=== PATIENT | female | born 1965 | race Caucasian/White ===

== ENCOUNTER → 2022-06-11 10:40 | Outpatient (BNVA) | payer MEDICARE, SELFPAY | PROVIDERS: Family Provider Family Medicine; PCP Family Medicine; Visit Provider Obstetrics & Gynecology | DX: R87.619 Unspecified abnormal cytological findings in specimens from cervix uteri (principal) | CPT/HCPCS: 88305 ==

== ENCOUNTER 2022-09-02 15:40 | Observation (INO) | payer MEDICARE, SELFPAY ==
[2022-08-27 11:11] VITALS: BMI 38.5
[2022-09-02] VITALS (17 sets, daily range): BP systolic 109–160; BP diastolic 52–84; PULSE 55–84; RESP 16–24; TEMP 36.1–37; O2SAT 92–99; BMI 38.5
[2022-09-02] MEDS: sodium chloride 0.9% 1,000 ML 30 ML IV (10:04)
[2022-09-02 10:26] LABS: Basophils # 0.1 10^3/uL (0.0-0.1); Basophils % 0.8 %; Eosinophils # 0.1 10^3/uL (0.0-0.8); Eosinophils % 1.1 %; Hematocrit 45.8 % (37.0-47.0); Hemoglobin 15.5 g/dL (11.5-15.3); Lymphocytes # 3.8 10^3/uL (0.8-4.8); Lymphocytes % 30.9 %; Mean Corpuscular HGB Conc 33.8 g/dL (30.0-36.0); Mean Corpuscular Hemoglobin 31.7 pg (28.0-34.0); Mean Corpuscular Volume 93.7 fl (81-99); Monocytes # 0.8 10^3/uL (0.2-0.9); Monocytes % 6.4 %; Neutrophils # 7.48 10^3/uL (1.8-7.7); Neutrophils % 60.6 %; Nucleated Red Blood Cells % 0 %; Platelet Count 412 10^3/cmm (130-400); Red Blood Count 4.89 10^6/uL (4.1-5.3); Red Cell Distribution Width 13.1 % (12.1-15.1); White Blood Count 12.3 10^3/uL (4.0-10.0)
[2022-09-02 10:48] LABS: Anion Gap 14.3 (5-19); Blood Urea Nitrogen 12 mg/dL (6-20); Calcium 9.1 mg/dL (8.5-10.5); Carbon Dioxide 23 mmol/L (22-29); Chloride 107 mmol/L (98-107); Glomerular Filtration Rate 126.7 mL/min (90-130); Glucose 97 mg/dL (65-115); Osmolality Calculated 290 mOsm/kg (285-295); Potassium 4.3 mmol/L (3.5-5.1); Sodium 140 mmol/L (136-145)
--- NOTE | 2022-09-02 12:06 | W.PM.OPSUD ---
Surgery/Procedure H&P Update DATE OF PROCEDURE: September 02, 2022 DATE H&P PERFORMED: 08/27/22 H&P UPDATE INFORMATION: I have reviewed H&P completed within last 30 days, I have examined patient prior to procedure and No changes to prior documentation PREOP DIAGNOSIS: HGSIL PLANNED PROCEDURE: Operation Date: 09/02/22 11:15 Proposed Procedures p Laparoscopic assisted vaginal hysterectomy, bilateral salpingectomy 57204, Anterior and posterior repair 53088, Possible slong 29779,N81.4,R87.613,D06.9(Not Applicable) - Zhanna Fernandez MD s Laparoscopic Salpingectomy(Bilateral) - Zhanna Fernandez MD s Anterior Repair(Not Applicable) - Zhanna Fernandez MD s Posterior Repair(Not Applicable) - Zhanna Fernandez MD s Sling(Not Applicable) - Zhanna Fernandez MD
[2022-09-02] MEDS: ceFAZolin 2,000 MG in sodium chloride 0.9% (plus) 50 ML 100 MG IV ×2 (12:12→19:56)
--- NOTE | 2022-09-02 13:50 | ANES.PREANE2 ---
Pre-Anesthetic Assessment Height/Weight: Height 1.57 m Weight 95.708 kg Temp Pulse Resp BP Pulse Ox O2 Del Method 97.4 F L 76 16 122/61 96 09/02/22 09:50 09/02/22 09:50 09/02/22 09:50 09/02/22 09:50 09/02/22 09:50 09/02/22 09:50 Preop Diagnosis: HGSIL Operation Date: 09/02/22 11:15 Proposed Procedures p Laparoscopic assisted vaginal hysterectomy, bilateral salpingectomy 29458, Anterior and posterior repair 70741, Possible slong 11591,N81.4,R87.613,D06.9(Not Applicable) - Zhanna Fernandez MD s Laparoscopic Salpingectomy(Bilateral) - Zhanna Fernandez MD s Anterior Repair(Not Applicable) - Zhanna Fernandez MD s Posterior Repair(Not Applicable) - Zhanna Fernandez MD s Sling(Not Applicable) - Zhanna Fernandez MD Familial anesthetic complications: none Was Beta Lex taken within 24 hours: N/A Was Clonidine taken within 24 hours: N/A Last intake: Intake Last Liquid Date 09/01/22 Last Liquid Time 22:30 Last Solid Date 09/01/22 Last Solid Time 22:30 Social No alcohol and No tobacco Exam alert, oriented x 3, clear to auscultation bilaterally and regular rate & rhythm Airway Submandibular: within normal limits Cervical ROM: within normal limits Mallampati: Class II Dentition: false Metabolic Morbid Obesity Neuropsych Anxiety Anesthetic Plan ASA status: 2 Anesthesia: General Medications/Allergies Home Medications Medication Instructions Recorded Confirmed Last Taken Type alprazolam 1 mg tablet (Xanax) 1 mg PO BID PRN Anxiety 06/11/22 09/02/22 09/02/22 07:00 History cyclobenzaprine 5 mg tablet 5 mg PO TID PRN Restless Leg(S) 06/11/22 08/27/22 06/25/22 History Allergies Allergy/AdvReac Type Severity Reaction Status Date / Time clonazepam Allergy Severe sucidal Verified 09/02/22 09:41 aspirin Allergy Intermediate throat Verified 09/02/22 09:41 swells desvenlafaxine [From Pristiq] Allergy Intermediate unknown Verified 09/02/22 09:41 duloxetine [From Cymbalta] Allergy Intermediate ADR-Depress Verified 09/02/22 09:41 ion gabapentin Allergy Intermediate unstable Verified 09/02/22 09:41 pregabalin [From Lyrica] Allergy Intermediate forgetfulne Verified 09/02/22 09:41 ss topiramate [From Topamax] Allergy Intermediate chest pain Verified 09/02/22 09:41 buspirone Allergy Unknown unknown Verified 09/02/22 09:41 Current Medications Generic Name Dose Route Start Last Admin Trade Name Freq PRN Reason Stop Dose Admin Sodium Chloride 1,000 mls @ 30 mls/hr 09/02/22 09:45 09/02/22 10:04 Sodium Chloride 0.9% IV 09/03/22 09:44 30 mls/hr .Q24H NARESH Administration PFSH Anesthesia Medical History Degenerative disc disease Depressive disorder Fibromyositis TISH (generalized anxiety disorder) Insomnia Obesity Uterine prolapse Surgical History History of carpal tunnel surgery History of cholecystectomy History of hand surgery History of tonsillectomy History of tubal ligation Family History Mother Hypertension Breast cancer Stroke Grandfather Heart disease Grandmother Heart disease Denies family history of Colon cancer Ovarian cancer Diabetes Hypercholesteremia Uterine cancer Thyroid disease Social History Smoking and tobacco status: current every day smoker Female Reproductive History Date of last menstrual period: 08/15/09 Data Anesthesia 09/02/22 09:53 09/02/22 09:53 Short CBC 09/02/22 Range/Units 09:53 WBC 12.3 H (4.0-10.0) 10^3/uL Hgb 15.5 H (11.5-15.3) g/dL Hct 45.8 (37.0-47.0) % MCV 93.7 (81-99) fl Plt Count 412 H (130-400) 10^3/cmm Neut % (Auto) 60.6 % Neut # (Auto) 7.48 (1.8-7.7) 10^3/uL BMP 09/02/22 09:53 Sodium 140 Potassium 4.3 Chloride 107 Carbon Dioxide 23 BUN 12 Creatinine 0.5 Glucose 97 Calcium 9.1 Blood Bank 09/02/22 09:53 Blood Type O Positive Rho(D) Type Positive Antibody Screen Negative Cardiac Studies: No Data to Display
[2022-09-02] MEDS: vasopressin 20 unit/mL INJ INJECTION (14:19)
--- NOTE | 2022-09-02 15:07 | P.OP_ITS ---
Operative Report Date of procedure: September 02, 2022 Pre-op diagnosis: Preop Diagnosis HGSIL uterine prolapse, urinary incontinence Post-op diagnosis: same Procedure done: LAVH, BSO, mid urethral sling, perineorrhaphy Specimens removed/disposition: uterus, tubes and ovaries to pathology Surgeon: Zhanna Fernandez Anesthesia: General Estimated blood loss (mL): 300 IV fluids (mL): 1,800 Urine output (mL): 100 Complications: none Findings: 8 week sized uterus, normal appearing tubes and ovaries, laxity of perineal body, urinary incontinence with valsalva Condition: stable Disposition: PACU Procedure: The patient was taken to the operating room where general anesthesia was administered and found to be adequate. She was prepped and draped in the normal sterile fashion in the dorsal lithotomy position in [facility]. A Casey catheter was placed. A weighted speculum was placed into the vagina and the anterior lip of the cervix was grasped with a single tooth tenaculum. The Zumi uterine manipulator was placed. The weighted speculum was removed. The gloves were changed and attention was turned to the abdomen. A 5 mm supraumbilical inc ision was made. Using a 5 mm port with the camera, the port was placed into the abdomen. The abdomen was insufflated. Two low, lateral 5 mm ports were placed on the left and right under direct visualization from the camera. The right tube was grasped and elevated. Using the laparoscopic cautery, the infundibulopelvic ligament was cauterized and the cautery was continued inferior to the fallopian tube to the cornua. This was performed the same way on the left. The uteroovarian ligaments as well as the round ligaments were ligated. The tubes and ovaries were left attached to the uterus. Attention was then turned to the vaginal portion of the procedure. The weighted speculum was placed into the vagina. The zumi manipulator was removed. The single tooth tenaculum was removed and replaced with the conor's tenaculum. 10 mL of dilute Pitressin was injected at the vesicovaginal junction. A circumferential incision was made at the vesicovaginal junction and the vaginal mucosa reflected cephalad. The posterior peritoneum was entered sharply with the Metzenbaum scissors and the long weighted speculum replaced. Using the Arnie clamps the uterosacral ligaments were clamped cut and suture- ligated. The anterior peritoneum was entered sharply with the metzenbaum scissors. Then sequentially the uterine arteries and cardinal ligaments were clamped cut and suture-ligated. A single-tooth tenaculum was used to deliver the uterus. The remaining segement of the utero-ovarian ligaments were clamped cut and suture-ligated bilaterally and the specimen was removed. There was good hemostasis with only mild bleeding from the cuff. The peritoneum was closed with a pursestring using 2-0 Vicryl. The vaginal cuff was closed with 0 Vicryl in a running locked pattern incorporating the uterosacral ligaments into the lateral aspects of the vaginal cuff. The Casey catheter was removed and the cystoscope advanced into the bladder. The patient was given pyridium and bilateral spill was noted. There were no injuries or deficits noted in the bladder. The cystoscope was removed. Valsalva showed that the patient leaked. The Casey was replaced and the bladder drained. 350 ml of sterile saline was placed into her bladder. Again, she leaked with valsalva. The decision was made to place a mid-urethral sling. A weighted speculum was placed into the vagina and an Allis clamp was placed approximately 2 cm below the urethra and another placed approximately 3 cm distal from that. An incision was made between the 2. The tissue was sharply and bluntly dissected along the pubic ramus bilaterally. The sling was placed on the left first by going through the incision and attaching the sling to the obturator foramen membrane . The right side was performed in a similar fashion, placing the applicator through the incision and attaching to the obturator foramen membrane. The Casey catheter was removed and the cystoscope advanced into the bladder. Pyridium was previously given and bilateral spill of orange fluid was noted from both ureteral orifices. There was no mesh noted to be in the bladder. The sling was tightened until there was no leakage with valsalva. The tag of suture was trimmed. The incision was repaired with 2-0 Vicryl in a running locked fashion. Attention was then turned to the perineorrhphy. Allis clamps were placed on the posterior fourchette. A 3 cm wedge of the fourchette was removed. This was repaired in the usual fashion with O-vicryl. The casey catheter was replaced. Vaginal packing was placed. The gloves were changed and attention was turned to the abdomen. The ports were closed with 3-0 monocryl with skin glue. The patient tolerated the procedure well. Sponge lap and needle counts were correct x3. She was taken to the recovery room in stable condition.
[2022-09-02] MEDS: fentaNYL 50 mcg/mL INJ 2mL IVP (15:09)
[2022-09-02] MEDS: meperidine 50 mg/mL INJ 12.5 MG IVP (15:26)
[2022-09-02] MEDS: oxyCODONE-APAP 5-325 mg Tablet PO (16:32)
[2022-09-02] MEDS: dextrose 5%-lactated ringers 1,000 ML 125 ML IV (16:35)
--- NOTE | 2022-09-02 16:37 | ANE.PACU2 ---
Inpatient post-anesthesia follow up: Airway intact: Yes Vital signs: Temperature 97.9 F Pulse Rate 63 Respiratory Rate 18 Blood Pressure 144/63 Pulse Oximetry 95 Oxygen Delivery Me thod Room Air Oxygen Flow Rate Fraction of Inspir ed Oxygen Hydration adequate: Yes Nausea and vomiting: No Pain level: 3 Mental status: Baseline
[2022-09-02] MEDS: HYDROmorphone 1 mg/mL INJ 1 mL 1.5 MG IVP ×2 (16:39→20:05)
[2022-09-02] MEDS: phenazopyridine 100 mg Tablet 200 MG PO (20:02)
[2022-09-02] MEDS: alum-mag-hydroxide-sime 30 mL UDC PO (23:12)
[2022-09-03] VITALS (7 sets, daily range): BP systolic 103–130; BP diastolic 51–77; PULSE 72–78; RESP 16–17; TEMP 36.9–37.1; O2SAT 95–99
[2022-09-03] MEDS: dextrose 5%-lactated ringers 1,000 ML 125 ML IV (02:06)
[2022-09-03] MEDS: oxyCODONE-APAP 5-325 mg Tablet PO ×2 (03:59→14:27)
[2022-09-03] MEDS: alum-mag-hydroxide-sime 30 mL UDC PO (04:01)
[2022-09-03] MEDS: ceFAZolin 2,000 MG in sodium chloride 0.9% (plus) 50 ML 100 MG IV (04:02)
[2022-09-03 05:46] LABS: Hematocrit 40.2 % (37.0-47.0); Hemoglobin 13.5 g/dL (11.5-15.3); Mean Corpuscular HGB Conc 33.6 g/dL (30.0-36.0); Mean Corpuscular Hemoglobin 31.8 pg (28.0-34.0); Mean Corpuscular Volume 94.6 fl (81-99); Mean Platelet Volume 9.9 fL (7.4-10.4); Platelet Count 402 10^3/cmm (130-400); Red Blood Count 4.25 10^6/uL (4.1-5.3); Red Cell Distribution Width 13.1 % (12.1-15.1); White Blood Count 19.3 10^3/uL (4.0-10.0)
--- NOTE | 2022-09-03 08:32 | PC.NURSE ---
Dr. Peter gave verbal order for a CBC to recheck WBC. This nurse Placed order.
[2022-09-03] MEDS: phenazopyridine 100 mg Tablet 200 MG PO (09:44)
[2022-09-03] MEDS: docusate sodium 100 mg Capsule PO (09:44)
[2022-09-03 12:30] LABS: Basophils % 0.2 %; Eosinophils % 0.1 %; Hematocrit 40.7 % (37.0-47.0); Hemoglobin 13.5 g/dL (11.5-15.3); Lymphocytes # 3.1 10^3/uL (0.8-4.8); Lymphocytes % 16.5 %; Mean Corpuscular HGB Conc 33.2 g/dL (30.0-36.0); Mean Corpuscular Hemoglobin 31.8 pg (28.0-34.0); Mean Platelet Volume 9.8 fL (7.4-10.4); Monocytes # 1.7 10^3/uL (0.2-0.9); Monocytes % 9.3 %; Neutrophils # 13.63 10^3/uL (1.8-7.7); Neutrophils % 73.5 %; Nucleated Red Blood Cells % 0 %; Platelet Count 405 10^3/cmm (130-400); Red Blood Count 4.24 10^6/uL (4.1-5.3); Red Cell Distribution Width 13.2 % (12.1-15.1); White Blood Count 18.6 10^3/uL (4.0-10.0)
--- NOTE | 2022-09-03 14:28 | P.DS_ITS ---
Discharge Providers Date of Admission: 09/02/22 15:40 Date of Discharge: September 03, 2022 Attending Provider at Admission: Zhanna Fernandez MD Attending Provider at Discharge: Zhanna Fernandez MD Primary Care Provider: Niesha Hale MD Reason for Visit Reason for Visit: D06.9 [facility] Hospital Course Hospital Course The patient was admitted for surgery. She did well postoperatively. She had leucocytosis on admission of 12.6 and postoperatively it was 19.9. A redraw after 7 hours, showed that it was trending down at 18.6. She was doing well. Pain was well controlled. She was ambulating, tolerating a regular diet and able to void normally without residual. She was ready for discharge. Physical Exam Narrative: She is doing well this morning. No concerns Const: COMMON NORMALS: patient oriented x3, no limitations, healthy appearing, alert and well nourished GENERAL APPEARANCE: cooperative, comfortable, well kempt and well developed ORIENTATION/CONSCIOUSNESS: Yes awake, Yes oriented to person, Yes oriented to place and Yes oriented to time Resp: COMMON NORMALS: normal respiratory effort EFFORT & INSPECTION: Yes able to speak in complete sentences GI: COMMON NORMALS: Soft to palpation and non-tender PALPATION: Yes Soft to palpation Extremity: COMMON NORMALS: no calf tenderness Neuro: COMMON NORMALS: patient oriented x3 SENSORIUM/ORIENTATION: Yes alert, Yes oriented to person, Yes oriented to place and Yes oriented to time Psych: COMMON NORMALS: mental status grossly normal, Normal thought process present, cooperative, normal affect and speech normal APPEARANCE: Yes well kempt SPEECH: Yes normal speech THOUGHT PROCESS: Normal thought process present Urinary Catheter Management: Niño Latex: Cath Placed During This Visit: yes, but has since been removed by the nurse Reason for Continuing Indwelling Catheter: Perioperative Use in Selected Surgeries Urinary Catheter Date of Insertion: 09/02/22 Urinary Catheter Time of Insertion: 12:43 Date Urinary Catheter Removed: 09/03/22 Time Urinary Catheter Discontinued: 05:27 Discharge Data Studies Completed and Pending Pending at discharge Category Date Time Status Urine Culture Routine Lab 09/02/22 12:47 Results Pathology: Surgical [PTH] Routine Pth 09/02/22 14:31 Received Laboratory Results WBC 18.6 10^3/uL (4.0-10.0) H 09/03/22 12:20 RBC 4.24 10^6/uL (4.1-5.3) 09/03/22 12:20 Hgb 13.5 g/dL (11.5-15.3) 09/03/22 12:20 Hct 40.7 % (37.0-47.0) 09/03/22 12:20 MCV 96.0 fl (81-99) 09/03/22 12:20 MCH 31.8 pg (28.0-34.0) 09/03/22 12:20 MCHC 33.2 g/dL (30.0-36.0) 09/03/22 12:20 RDW 13.2 % (12.1-15.1) 09/03/22 12:20 Plt Count 405 10^3/cmm (130-400) H 09/03/22 12:20 MPV 9.8 fL (7.4-10.4) 09/03/22 12:20 Neut % (Auto) 73.5 % 09/03/22 12:20 Lymph % (Auto) 16.5 % 09/03/22 12:20 [place] % (Auto) 9.3 % 09/03/22 12:20 Eos % (Auto) 0.1 % 09/03/22 12:20 Baso % (Auto) 0.2 % 09/03/22 12:20 Neut # (Auto) 13.63 10^3/uL (1.8-7.7) H 09/03/22 12:20 Lymph # (Auto) 3.1 10^3/uL (0.8-4.8) 09/03/22 12:20 [place] # (Auto) 1.7 10^3/uL (0.2-0.9) H 09/03/22 12:20 Eos # (Auto) 0.0 10^3/uL (0.0-0.8) 09/03/22 12:20 Baso # (Auto) 0.0 10^3/uL (0.0-0.1) 09/03/22 12:20 Nucleated RBC % (auto) 0 % 09/03/22 12:20 Nucleated RBCs # 0.0 /100WBC 09/03/22 12:20 Sodium 140 mmol/L (136-145) 09/02/22 09:53 Potassium 4.3 mmol/L (3.5-5.1) 09/02/22 09:53 Chloride 107 mmol/L (98-107) 09/02/22 09:53 Carbon Dioxide 23 mmol/L (22-29) 09/02/22 09:53 Anion Gap 14.3 (5-19) 09/02/22 09:53 BUN 12 mg/dL (6-20) 09/02/22 09:53 Creatinine 0.5 mg/dL (0.5-0.9) 09/02/22 09:53 GFR Calculation 126.7 mL/min (90-130) 09/02/22 09:53 Glucose 97 mg/dL (65-115) 09/02/22 09:53 Calculated Osmolality 290 mOsm/kg (285-295) 09/02/22 09:53 Calcium 9.1 mg/dL (8.5-10.5) 09/02/22 09:53 Blood Type O Positive 09/02/22 09:53 Rho(D) Type Positive 09/02/22 09:53 Antibody Screen Negative 09/02/22 09:53 Vitals Last Vital Signs Temp 98.7 F 09/03/22 04:00 Pulse 78 09/03/22 11:30 Resp 17 09/03/22 11:30 BP 103/64 09/03/22 11:30 Pulse Ox 98 09/03/22 11:30 O2 Del Method 09/03/22 04:00 O2 Flow Rate 2 09/02/22 20:00 Discharge Plan Discharge Patient Disposition: Home Condition: Stable Prescriptions: New docusate sodium 100 mg Capsule 100 mg PO BID Qty: 60 0RF oxycodone-acetaminophen 5-325 mg Tablet 1 tab PO Q4H PRN (Reason: Moderate To Severe Pain) Qty: 30 0RF Continued alprazolam [Xanax] 1 mg tablet 1 mg PO BID PRN (Reason: Anxiety) cyclobenzaprine 5 mg tablet 5 mg PO TID PRN (Reason: Restless Leg(S)) Discharge Orders: Discharge Order (Routine); Ordered 09/03/22 Ordered By: Zhanna Fernandez Referrals: Niesha York MD [Primary Care Provider] - 09/08/22 3:45 pm (APPOINTMENT WITH DR CLAUDIA NICK) Patient Instructions: Opioid Safety Discharge Attestations Time Spent in Discharge Care*: less than 30 min Quality Metrics Clinical Quality Measures [ No reported AMI, CVA or VTE this stay] Coding Level of Care Code Acute Chg FW DC note
--- NOTE | 2022-09-03 15:45 | PC.NURSE ---
Discharge discussed along with new medications, continued medications and follow up appointments. Verbalized understanding.
== END 2022-09-03 15:00 | disposition home or self-care (01) ==
LOC: OBGYN 15:41 → MEDSURG 17:18
PROVIDERS: Admitting Provider Obstetrics & Gynecology; PCP Family Medicine; Visit Provider Obstetrics & Gynecology
PROC: 0UT9FZZ Resection of Uterus, Via Natural or Artificial Opening With Percutaneous Endoscopic Assistance (ICD-10-PCS; CPT 57288; principal; 2022-09-02 11:05)
PROC: (CPT 57288; 2022-09-02 11:05)
PROC: (CPT 58661; 2022-09-02 11:05)
PROC: 0TJB8ZZ Inspection of Bladder, Via Natural or Artificial Opening Endoscopic (ICD-10-PCS; CPT 52000; 2022-09-02 11:05)
PROC: (CPT 57250; 2022-09-02 11:05)
DX: N81.4 Uterovaginal prolapse, unspecified (principal); R87.613 High grade squamous intraepithelial lesion on cytologic smear of cervix (HGSIL); R32 Unspecified urinary incontinence; F17.200 Nicotine dependence, unspecified, uncomplicated
CPT/HCPCS: 57288; 58552; 36415; 51798; 80048; 85025; 85027; 86850; 86900; 87086; 88307; C1713; G0378; J0690; J1100; J1170; J2175; J2250; J2405; J2704; J3010; J3490; J7030; J7121

== ENCOUNTER → 2022-09-11 14:42 | Outpatient (BNVA) | payer MEDICARE, SELFPAY | PROVIDERS: PCP Family Medicine; Visit Provider Obstetrics & Gynecology | DX: Z00.00 Encounter for general adult medical examination without abnormal findings (principal); R82.90 Unspecified abnormal findings in urine; Z48.816 Encounter for surgical aftercare following surgery on the genitourinary system | CPT/HCPCS: 84315; 87077; 87086; 87184 ==

== ENCOUNTER → 2024-01-27 14:39 | Outpatient (BNVA) | payer MEDICARE, SELFPAY | PROVIDERS: PCP Family Medicine; Referring Provider Family Medicine; Visit Provider Internal Medicine Cardiovascular Disease | DX: R07.9 Chest pain, unspecified (principal); R55 Syncope and collapse; R01.1 Cardiac murmur, unspecified; F17.200 Nicotine dependence, unspecified, uncomplicated | CPT/HCPCS: 93005; 99204 ==

== ENCOUNTER → 2024-03-15 13:43 | Outpatient (CLI) | payer MEDICARE, SELFPAY ==
--- NOTE | 2024-03-15 14:15 | USCV_ITS ---
Coral Lopez Age: 58 Gender: F : 1965 Exam Date: 03/15/2024 14:05 Ordering Phys: Niko Graham MD ([email or web address]) Technologist: CT Exam Location: [facility] – [place] Indication: sob BP: 110 / 80 HR: 68 Rhythm: Sinus Technical Quality: Adequate MEASUREMENTS (Male / Female) Normal Values 2D ECHO LVOT Diameter 2.0 cm LV Ejection Fraction MOD 2C 55.4 % LV Ejection Fraction 2C AL 55.6 % LA Diameter 3.7 cm RA Systolic Volume 4C AL 28.7 ml RA Systolic Volume 4C MOD 25.5 ml LA Sys Volume AL 26.6 cm cubed LA Sys Volume Index AL 12.6 cm cubed/m squared Aorta at Sinotubular Diameter 2.1 cm IVC Diameter 2.1 cm M-MODE LA Ao Ratio MM 1.6 AV Cusp Separation MM 2.0 cm DOPPLER AV Peak Velocity 128.0 cm/s LVOT Peak Velocity 103.0 cm/s AV Area Cont Eq vti 2.7 cm squared AV Area Cont Eq pk 2.5 cm squared MV Peak Velocity 79.0 cm/s MV Area PHT 4.1 cm squared Mitral E to A Ratio 0.8 TV Peak Velocity 131.5 cm/s TR Peak Velocity 136.0 cm/s TR Peak Gradient 7.4 mmHg TV Peak E Velocity 91.0 cm/s Right Atrial Pressure 3.0 mmHg Pulmonary Artery Systolic Pressu 10.4 mmHg PV Peak Velocity 104.0 cm/s FINDINGS Left Ventricle Normal left ventricular size, systolic function and wall thickness, with no regional wall motion abnormalities. Normal left ventricular wall thickness. Left ventricular ejection fraction is estimated at 60 %. Grade I/IV diastolic dysfunction (abnormal relaxation filling pattern), normal to mildly elevated filling pressures. Right Ventricle The right ventricle is normal in size and function. Right Atrium The right atrium is normal in size. Left Atrium The left atrium is normal in size. Mitral Valve Structurally normal mitral valve without significant stenosis or prolapse. There is trace mitral regurgitation. Aortic Valve Structurally normal aortic valve without significant sclerosis or stenosis. There is trace aortic regurgitation. Tricuspid Valve Structurally normal tricuspid valve without significant stenosis or regurgitation. Pulmonary artery systolic pressure is normal. Pulmonic Valve Structurally normal pulmonic valve without significant stenosis. There is no pulmonic regurgitation. Pericardium Normal pericardium without effusion. Aorta Normal ascending aorta dimension. IVC The inferior vena cava appears normal. CONCLUSIONS 1-Normal left ventricular size, systolic function and wall thickness, with no regional wall motion abnormalities. Normal left ventricular wall thickness. Left ventricular ejection fraction is estimated at 60 %. Grade I/IV diastolic dysfunction (abnormal relaxation filling pattern), normal to mildly elevated filling pressures. 2-There is no pericardial effusion. 3-No significant valve abnormalities. 4-Right atrial pressure is around 5 mm of mercury. 5-There are no prior echocardiogram studies to compare. Saskia Johnson MD (Electronically Signed) Final Date: 15 March 2024 18:57 S
== END | disposition home or self-care (01) ==
LOC: RAD 13:43
PROVIDERS: PCP Family Medicine; Visit Provider Internal Medicine Cardiovascular Disease
DX: I50.30 Unspecified diastolic (congestive) heart failure (principal); R06.09 Other forms of dyspnea
CPT/HCPCS: 93306

== ENCOUNTER → 2024-08-11 12:34 | Outpatient (BNVA) | payer MEDICARE, SELFPAY | PROVIDERS: PCP Family Medicine; Visit Provider Nurse Practitioner Family | DX: R55 Syncope and collapse (principal); R01.1 Cardiac murmur, unspecified; F17.200 Nicotine dependence, unspecified, uncomplicated; R07.9 Chest pain, unspecified | CPT/HCPCS: 99213 ==